=== PATIENT | male | born 2000 | race Caucasian/White ===

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

== ENCOUNTER 2020-12-02 19:36 | Emergency (ER) | payer OTHER, SELFPAY ==
--- NOTE | 2020-12-02 19:47 | DI.RAD.S_ITS ---
PROCEDURE: XR TIBIA FIBULA LT 2V INDICATIONS: shot nail through soft tissue TECHNIQUE: 2 views of the tibia and fibula were acquired. COMPARISON: None. FINDINGS: Bones: No fractures or dislocations. No suspicious bony lesions. Soft tissues: No suspicious soft tissue calcifications or masses. Note is made of a very thin fragment of curvilinear metal within the mid calf level posterior and slightly lateral to the fibula. There is no suspicion impingement by the reported nail gun nail into the osseous structures. IMPRESSION: Small thin curvilinear metallic foreign body but no sign of penetration into the cortex or medullary space of the tibia and fibula. Dictated by: Sean Briggs M.D. on 12/02/2020 at 20:01 Approved by: Sean Briggs M.D. on 12/02/2020 at 20:02
[2020-12-02 19:50] VITALS: BP 130/59; PULSE 89; RESP 17; TEMP 37.4; O2SAT 98; BMI 30.4
--- NOTE | 2020-12-02 21:13 | ED.SKABFB ---
HPI - Skin/Abscess/Foreign Bdy General Chief complaint: Skin/Abscess/Foreign Body Stated complaint: Shot A Nail Through Left Calf, Nail Gun Time Seen by Provider: 12/02/20 21:08 Source: patient Mode of arrival: Ambulatory Limitations: no limitations History of Present Illness HPI narrative: Patient is a 19-year-old male here for evaluation of an injury that he sustained to his left calf. He states he was at work when he accidentally was shot in the left calf with a nail from a nail gun. He stated that he removed the nail at the scene. He did cover with a bandage. No other injuries from the event. He does not know when his last tetanus shot was. Related Data Previous Rx's Medication Instructions Recorded ketoconazole 2 % topical cream 1 applictn TOP BID #30 gram 09/09/18 terbinafine HCl 250 mg tablet 250 mg PO DAILY #7 tab 09/09/18 cephalexin 500 mg PO QID 5 Days #20 cap 12/02/20 Allergies Allergy/AdvReac Type Severity Reaction Status Date / Time No Known Drug Allergies Allergy Verified 01/23/19 15:07 Review of Systems Constitutional Constitutional: Denies fever(s) Musculoskeletal Musculoskeletal: Denies tingling Comments: Puncture wound to left calf, no knee pain or ankle pain. Integumentary/Breasts Comments: Puncture wound to left calf muscle Neurologic Neurologic: Denies tingling Hematologic/Lymphatic On Anticoagulants: No Allergic/Immunologic Allergic/Immunologic: Denies urticaria Patient History Medical History Abrasion of hand Surgical History Status post myringotomy with insertion of tube Status post tonsillectomy and adenoidectomy Social History Smoking Status: Current every day smoker Smoking Status: Current every day smoker alcohol intake frequency: a few times a week Substance Use Type: does not use Exam Initial Vital Signs Initial Vital Signs: Vital Signs Temperature 99.3 F 12/02/20 19:50 Pulse Rate 89 12/02/20 19:50 Respiratory Rate 17 12/02/20 19:50 Blood Pressure 130/59 L 12/02/20 19:50 Pulse Oximetry 98 12/02/20 19:50 Const General: cooperative and comfortable Skin Other: Patient with a small puncture wound on the posterior lateral aspect of the left calf muscle. Neuro Gait: normal gait Sensory Exam: no sensory deficits noted Extrem Other: No left knee or ankle tenderness Psych Appearance: grossly normal and well kempt Course Orders Ordered: ED Orders 12/02/20 19:47 XR tibia fibula LT 2V Stat Discontinued Medications Cephalexin HCl (Cephalexin 250 Mg Capsule) 500 mg PO NOW ONE Stop: 12/02/20 21:15 Last Admin: 12/02/20 21:39 Dose: 500 mg Documented by: DINESH Diphtheria/Tetanus/Acell Pertussis (Tet,Diph,Pertuss(Acell),Vac/Pf 0.5 Ml Syringe) 0.5 ml IM .ONCE ONE Stop: 12/02/20 19:55 Last Admin: 12/02/20 21:33 Dose: Not Given Documented by: DINESH Diphtheria/Tetanus/Acell Pertussis (Tet,Diph,Pertuss(Acell),Vac/Pf 0.5 Ml Syringe) 0.5 ml IM .ONCE ONE Stop: 12/02/20 21:35 Last Admin: 12/02/20 21:39 Dose: 0.5 ml Documented by: DINESH Vital Signs Vital signs: Vital Signs - 8 hr 12/02/20 19:50 12/02/20 22:09 Temperature 99.3 F Pulse Rate 89 72 Respiratory Rate 17 14 Blood Pressure 130/59 L 131/58 L Pulse Oximetry 98 97 MDM - Skin/Abscess/Foreign Bdy Imaging Data Extremity x-ray #1: Radiologist's Impression: [address] [id number] ReportSigned Patient: Carlitos Jack EMR#: [id number]: [id number]:[id number]/Sex: 19 / MDate of Service: 12/02/20Loc: EDAccession Number: [id number] Procedure: XR tibia fibula LT 2V Ordering Provider: Alexander Sommers D.O. PROCEDURE: XR TIBIA FIBULA LT 2V INDICATIONS: shot nail through soft tissue TECHNIQUE: 2 views of the tibia and fibula were acquired. COMPARISON: None. FINDINGS: Bones: No fractures or dislocations. No suspicious bony lesions. Soft tissues: No suspicious soft tissue calcifications or masses. Note is made of a very thin fragment of curvilinear metal within the mid calf level posterior and slightly lateral to the fibula. There is no suspicion impingement by the reported nail gun nail into the osseous structures. IMPRESSION: Small thin curvilinear metallic foreign body but no sign of penetration into the cortex or medullary space of the tibia and fibula. Dictated by: Sean Briggs M.D. on 12/02/2020 at 20:01 Approved by: Sean Briggs M.D. on 12/02/2020 at 20:02 [facility] Narrative Medical decision making narrative: The puncture wound on his left calf shows no signs of infection and there is no drainage. The x-ray does show a small metallic foreign body in his left calf. This is most likely from the nail which had metallic rings around. This foreign body is not palpable from the exterior portion I feel that attempting to extract the foreign body would cause more damage than leaving it in place. His tetanus was updated. Will start him on antibiotics given the fact that this was a puncture wound. He was given care instructions and return precautions. He expressed understanding and agreement. Discharge Plan Departure Patient Disposition: Home Clinical Impression: Injury by nail gun, Foreign body (FB) in soft tissue Instructions: Skin Wound Activity Restrictions/Additional Instructions: Take the antibiotic as directed. You can shower like normal. Keep the wound covered like we discussed. Return to the emergency department for any new or worsening symptoms Prescriptions: New cephalexin 500 mg capsule 500 mg PO QID 5 Days Qty: 20 RF: 0 No Action terbinafine HCl 250 mg tablet 250 mg PO DAILY Qty: 7 RF: 0 ketoconazole 2 % cream 1 applictn TOP BID Qty: 30 RF: 0 Referrals: Lili Kohli DO [Primary Care Provider] -
[2020-12-02] MEDS: cephALEXin 250 MG CAPSULE 500 MG PO (21:39)
[2020-12-02] MEDS: TET,DIPH,PERTUSS(ACELL),VAC/PF 0.5 ML SYRINGE IM (21:39)
--- NOTE | 2020-12-02 21:44 | PC.NURSE ---
nail puncture, left calf, 2 in ring shank collated stainless steel nail.
[2020-12-02 22:09] VITALS: BP 131/58; PULSE 72; RESP 14; O2SAT 97
== END 2020-12-02 22:10 | disposition home or self-care (01) ==
PROVIDERS: Emergency Provider Emergency Medicine; Family Provider Family Medicine; PCP Family Medicine
DX: S81.842A Puncture wound with foreign body, left lower leg, initial encounter (principal); W29.4XXA Contact with nail gun, initial encounter; Z23 Encounter for immunization; Y99.0 Civilian activity done for income or pay
CPT/HCPCS: 73590; 90471; 99283; 99284; 90715

== ENCOUNTER → 2020-12-20 14:54 | Outpatient (CLI) | payer OTHER, MEDICAID, SELFPAY ==
[2020-12-20] MEDS: COVID-19 VACC #1, MRNA(MOD) 100 MCG/0.5 ML VIAL IM (15:06)
== END ==
PROVIDERS: Family Provider Family Medicine; PCP Family Medicine; Visit Provider Internal Medicine
DX: Z23 Encounter for immunization (principal)
CPT/HCPCS: 0011A; 91301

== ENCOUNTER → 2021-01-31 15:52 | Outpatient (CLI) | payer MEDICAID, SELFPAY ==
[2021-01-31] MEDS: COVID-19 VACC #2, MRNA(MOD) 100 MCG/0.5 ML VIAL IM (16:07)
== END ==
PROVIDERS: Family Provider Family Medicine; PCP Family Medicine; Visit Provider Internal Medicine
DX: Z23 Encounter for immunization (principal)
CPT/HCPCS: 0012A; 91301

== ENCOUNTER → 2023-08-05 18:09 | Outpatient (CLI) | payer OTHER, SELFPAY ==
[2023-08-05 20:27] LABS: Urine N gonorrhoeae NOT DETECTED
[2023-08-05 20:42] LABS: Urine Chlamydia DETECTED
== END ==
PROVIDERS: Family Provider Family Medicine; PCP Family Medicine; Visit Provider Nurse Practitioner Family
DX: Z20.2 Contact with and (suspected) exposure to infections with a predominantly sexual mode of transmission (principal)
CPT/HCPCS: 87491; 87591